=== PATIENT | female | born 1970 | race Caucasian/White ===

== ENCOUNTER 2025-02-21 13:18 | Observation (INO) | payer OTHER ==
[~2025-02-21] VITALS: Ht 162.5 cm; Wt 57.2 kg
[2025-02-21 13:28] VITALS: BP 96/61
[2025-02-21] MEDS ORDERED: IOHEXOL 300 MG/ML 100 ML VIAL IV ONE (14:00)
[2025-02-21 14:20] LABS: MEAN CELL VOLUME 114.2 fl (81.0-99.0); MEAN CORPUSCULAR HGB 38.3 pg (27.0-31.0); MEAN PLATELET VOLUME 11.2 fl (9.6-12.3); NUCLEATED RED BLOOD CELL 12.9 % (0.0-0.0); NUCLEATED RED BLOOD CELL 2.2 10*3/uL (0.0-0.0); PLATELET COUNT AUTOMATED 112 10*3/uL (130-400); RED CELL DISTRI WIDTH 16.1 % (0-14.5)
[2025-02-21 14:35] LABS: ACT PARTIAL THROMBO TIME 36.5 SECONDS (20.0-32.1)
[2025-02-21 14:42] LABS: BUN 76.0 mg/dl (9-23); ETHYL ALCOHOL 5.8 mg/dl (<3); SGPT/ALT 166.0 U/L (5-49)
[2025-02-21 14:45] LABS: MANUAL DIFF REFLEX YES
[2025-02-21 14:52] LABS: PLATELET SUFFICIENCY LOW (NORMAL)
[2025-02-21] MEDS ORDERED: Lactated Ringer's Solution 1,000 ML IV SCH (15:05)
[2025-02-21] MEDS ORDERED: SODIUM CHLORIDE 0.9% 1,000 ML IV ONE ×2 (17:40→20:05)
[2025-02-21 19:16] VITALS: BP 102/57
[2025-02-21 21:02] VITALS: BP 109/66
[2025-02-21 23:59] VITALS: BP 96/55
[2025-02-22 02:34] VITALS: BP 102/61
[2025-02-22 04:38] VITALS: BP 106/56
[2025-02-22 06:46] VITALS: BP 93/54
[2025-02-22 07:33] VITALS: BP 100/59
[2025-02-22] MEDS ORDERED: hydrOXYzine 50 MG CAP PO PRN (09:35)
[2025-02-22] MEDS ORDERED: FOLIC ACID 1 MG TAB PO ONE (09:35)
[2025-02-22] MEDS ORDERED: METHOCARBAMOL 750 MG TAB PO PRN (09:35)
[2025-02-22] MEDS ORDERED: MAGNESIUM SULFATE 100 ML IV ONE (09:35)
[2025-02-22] MEDS ORDERED: Dicyclomine Hydrochloride 20 MG TAB PO PRN (09:35)
[2025-02-22] MEDS ORDERED: Water, Sterile 10 ML VIAL IV PRN (09:35)
[2025-02-22 09:59] LABS: BUN 77.0 mg/dl (9-23); SGPT/ALT 151.0 U/L (5-49)
[2025-02-22] MEDS ORDERED: Piperacillin Sodium/Tazobact 2.25 GM in SODIUM CHLORIDE 0.9% 50 ML IV SCH (10:00)
[2025-02-22] MEDS ORDERED: MULTIVITAMIN 1 TAB TAB PO SCH (10:00)
[2025-02-22] MEDS ORDERED: LORazepam 1 MG TAB PO SCH (12:00)
== END 2025-02-22 11:13 | disposition short-term general hospital (02) ==
LOC: ED 13:18 → EDHOLD 02-22 08:48
PROVIDERS: Emergency Medicine; Internal Medicine; ADMIT Internal Medicine; ATTEND Internal Medicine
DX: K76.7 Hepatorenal syndrome (principal); E87.20 Acidosis, unspecified; N17.0 Acute kidney failure with tubular necrosis; E80.6 Other disorders of bilirubin metabolism; E87.1 Hypo-osmolality and hyponatremia; R00.0 Tachycardia, unspecified; I95.9 Hypotension, unspecified; K74.60 Unspecified cirrhosis of liver; K70.30 Alcoholic cirrhosis of liver without ascites; R16.0 Hepatomegaly, not elsewhere classified; D72.829 Elevated white blood cell count, unspecified; D72.89 Other specified disorders of white blood cells; F10.20 Alcohol dependence, uncomplicated; Z79.899 Other long term (current) drug therapy